=== PATIENT | female | born 1960 | race Caucasian/White ===

== ENCOUNTER 2016-06-22 12:37 | Emergency (ER) | payer OTHER ==
[~2016-06-22] VITALS: Ht 152.4 cm; Wt 99.4 kg
[2016-06-22 15:10] VITALS: BP 144/78
== END 2016-06-22 15:10 | disposition home or self-care (01) ==
LOC: ED 12:37
DX: M25.561 Pain in right knee (principal); M25.512 Pain in left shoulder; I10 Essential (primary) hypertension; E11.9 Type 2 diabetes mellitus without complications; Z79.84 Long term (current) use of oral hypoglycemic drugs
CPT/HCPCS: J1885